=== PATIENT | female | born 1995 | race Caucasian/White ===

== ENCOUNTER 2022-07-19 21:33 | Emergency (ER) | payer BC, SELFPAY ==
[2022-07-19 21:37] VITALS: BP 140/93; PULSE 88; RESP 14; TEMP 36.5; O2SAT 99; BMI 38.5
[2022-07-19 22:27] VITALS: BP 140/93; PULSE 88; RESP 14; O2SAT 99
--- NOTE | 2022-07-20 15:04 | EDS_ITS ---
HPI History of Present Illness Chief Complaint: Lower Extremity Injury Informant: patient and spouse/S.O. Narrative Narrative: Delayed note patient seen on 07/19/2022. Presenting her second other evaluation increasing redness left lower leg with tenderness. Diagnosed with a reported superficial thrombophlebitis 4 days ago along the same leg. She is at [facility]. She states due to location of the clot there is concerns from care provider therefore Eliquis was started. She has been taking this medications. States today redness has increased along with tender region. She has no fevers. Denies chest pains or shortness of breath. She reported spoke with family member who was physician out of Tylenol reported could be infectious therefore was told to go to the ED. No also reported had follow-up telehealth visit the following day with [facility] she was referred to hematology along with vascular specialist. PFSH PFSH Medical History no medical history Home Medications apixaban 5 mg (74 tabs) tablets in a dose pack (Eliquis DVT-PE Treat 30D Start) 10 mg PO BID 07/19/22 [History Last Taken Unknown] Surgical History no surgical history Social History Smoking Status: Never smoker ROS ROS ED Constitutional Constitutional ED: Denies chills, fever(s) or sweats Eyes Eyes: Denies change in vision ENT ENT ED: Denies dysphagia or sore throat Cardiovascular Cardiovascular: Denies chest pain, leg edema, palpitations or racing heartbeat Respiratory/Chest Respiratory/Chest: Denies cough, dyspnea or dyspnea on exertion Gastrointestinal Gastrointestinal: Denies abdominal pain, diarrhea, nausea or vomiting Genitourinary Genitourinary ED: Denies dysuria, hematuria or urinary frequency Musculoskeletal Musculoskeletal: Denies back pain, extremity pain or neck pain Integumentary Reports other Details: Increased redness along thrombophlebitis left lower leg ; Denies rash or wounds Neurologic Neurologic: Denies headache(s), paresthesias or weakness EXAM Physical Exam Const Vital Signs: 07/19/22 21:37 07/19/22 22:27 Temperature 97.7 F L Temperature Source Temporal Pulse Rate 88 88 Respiratory Rate 14 14 Blood Pressure 140/93 H 140/93 H Blood Pressure Mean 108 Pulse Ox 99 99 Oxygen Delivery Method Room Air Positive well nourished and well developed General Appearance ED: well developed and NAD HEENT Reports moist mucous membranes normocephalic and atraumatic Eyes PERRL, EOMs intact bilaterally and conjunctivae normal General Eye ED: Yes normal appearance of both eyes Neck no lymphadenopathy and supple General: Negative for tenderness Chest Wall Chest: Negative for tenderness Resp normal respiratory effort and normal air movement Effort and Inspection: symmetric chest movement; Negative for respiratory distress Cardio regular rate, regular rhythm and no murmurs Peripheral Pulses: pulses 2+ throughout GI normal to inspection, nondistended, normoactive bowel sounds and non-tender Palpation: Negative for guarding or rebound tenderness present Back/Spine no CVA tenderness and no thoracic nor lumbar tenderness Extremity Extremity Narrative: Left lower extremity: Palpable cords along the distal medial thigh and anterior proximal tibia mild tenderness there is erythema along with cord areas. There is no increasing warmth. Distal pulses are intact. General Extremety ED: Negative for edema or tenderness General Extremity: Negative for edema Neuro oriented x3 and no sensory deficits noted Sensorium / Orientation: awake and alert Skin no rashes or lesions noted and no wounds MDM MDM MDM Narrative Medical decision making narrative: Patient known superficial thrombophlebitis currently on Eliquis. She reports increasing redness along this region. Denies fevers. Discussed with patient this is inflammatory response not likely infectious response. She is on Eliquis per report, I attempted to obtain report through [employer] however is unable to pull the official report. Discussed typical likely thrombophlebitis superficial does not require anticoagulants have she was started on this by the specialist. She is reading referred to hematology and vascular through her physicians. She will continue this medication at the time she use Tylenol she needs for pain. She will avoid NSAIDs. She will monitor for any fevers. Discussed continuing current treatment this time and supportive care. All questions were answered. Discharge Plan Triage Chief Complaint: Lower Extremity Injury ED Provider: Prabhakar Duke Dx/Rx/DC Orders Clinical Impression: Thrombophlebitis of left lower extremity, Left leg pain Instructions: ED Thrombophlebitis, Superficial Prescriptions: No Action Eliquis DVT-PE Treat 30D Start 5 mg (74 tabs) tablets,dose pack 10 mg PO BID Label Comments: TAKE 2 TABLETS BY MOUTH TWICE A DAY FOR THE FIRST 7 DAYS, THEN TAKE 1 TABLET BY MOUTH TWICE A DAY Primary Care Provider: Eric Lal NP Referrals: Eric Lal NP, [employer] [Primary Care Provider] - Activity Restrictions/Additional Instructions: Continue your Eliquis since it has been started. Do not take anti-inflammatory medicines, may use Tylenol. Keep your follow-up as planned with your specialist. Disposition Disposition: Home, Self Care Discharge Date/Time: 07/19/22 22:28
== END 2022-07-19 22:28 | disposition home or self-care (01) ==
PROVIDERS: Emergency Provider Emergency Medicine; PCP Nurse Practitioner Family; Visit Provider Emergency Medicine
DX: I80.3 Phlebitis and thrombophlebitis of lower extremities, unspecified (principal); M79.605 Pain in left leg
CPT/HCPCS: 99281